=== PATIENT | male | born 1995 | race Two or more races ===

== ENCOUNTER 2017-09-03 18:50 | Emergency (ER) | payer OTHER ==
[~2017-09-03] VITALS: Ht 172.7 cm; Wt 59.0 kg
[~2017-09-03 18:50] MED LIST: PROMETHAZINE-C118 M1 ORAL; TAMIFLU75 MG ORAL
[2017-09-03 19:50] VITALS: BP 158/80
[2017-09-03] MEDS ORDERED: NORCO 5-325 TA1 EACH ORAL (20:07)
[2017-09-03] MEDS ORDERED: AMOXICILLIN500 MG ORAL (20:07)
[2017-09-03] MEDS ORDERED: Morphine Sulfate 4mg/ml Inj IM ONE (20:15)
[2017-09-03 20:17] VITALS: BP 158/80
--- NOTE | 2017-09-07 14:39 | Emergency Room Report ---
History of Present Illness General Chief Complaint: Head, Face, Neck Trauma Source: Patient Present Illness HPI 22-year-old male presents to ED with facial pain and swelling. States 2 days ago he had a temporary tooth placed by dentist. States that he's been having increased pain and lower facial swelling. Pain is a 10 out of 10, unrelieved with ibuprofen prescribed. Throbbing. Denies fevers or chills. Denies nausea or vomiting. No other aggravating relieving factors. Denies any other associated symptom Allergies: Coded Allergies: No Known Allergies (Unverified , 01/18/16) Patient History Past Medical History: none Past Surgical History: none Pertinent Family History: none Social History: Denies: smoking, alcohol use, drug use Immunizations: UTD Reviewed Nursing Documentation: PMH: Agreed, PSxH: Agreed Nursing Documentation-PMH Past Medical History: No Stated History Review of Systems All Other Systems: negative except mentioned in HPI Physical Exam Vital Signs Date Time Temp Pulse Resp B/P (MAP) Pulse Ox O2 Delivery O2 Flow Rate FiO2 09/03/17 19:36 98.8 57 18 158/80 98 Room Air Sp02 EP Interpretation: reviewed, normal General Appearance: no apparent distress, alert, GCS 15, non-toxic, mild distress Head: normocephalic, atraumatic Eyes: bilateral eye normal inspection, bilateral eye PERRL ENT: other - upper lip, facial swelling Neck: full range of motion, supple, no meningismus, supple/symm/no masses Respiratory: chest non-tender, lungs clear, normal breath sounds, speaking full sentences Cardiovascular #1: regular rate, rhythm, no edema Cardiovascular #2: 2+ carotid (R), 2+ carotid (L), 2+ radial (R), 2+ radial (L) , 2+ dorsalis pedis (R), 2+ dorsalis pedis (L) Gastrointestinal: normal bowel sounds, non tender, soft, non-distended, no guarding, no rebound Rectal: deferred Genitourinary: normal inspection, no CVA tenderness Musculoskeletal: back normal, gait/station normal, normal range of motion, non- tender Neurologic: alert, oriented x3, responsive, motor strength/tone normal, sensory intact, speech normal Psychiatric: judgement/insight normal, memory normal, mood/affect normal, no suicidal/homicidal ideation Reflexes: 3+ bicep (R), 3+ bicep (L), 3+ tricep (R), 3+ tricep (L), 3+ knee (R) , 3+ knee (L) Skin: normal color, no rash, warm/dry, well hydrated Lymphatic: no adenopathy Medical Decision Making Diagnostic Impression: Primary Impression: Dental infection ER Course 22-year-old male presents ED complaining of tooth pain, facial swelling Cracked tooth, dental abscess, cavity Patient placed on stretcher. After initial history, physical exam reveals a young male in mild distress. There is evidence of a upper tooth with surrounding lower facial swelling. No fluctuance or discharge. Possible infection. Given morphine in ED. Will prescribe antibiotics and pain medications. Patient does need to followup with dentist soon Diagnosis- dental infection Stable and discharged to home prescription for Questa and amoxicillin. Instructed to see dentist as a walk-in this week. Return to ED if symptoms recur or worse Last Vital Signs Date Time Temp Pulse Resp B/P (MAP) Pulse Ox O2 Delivery O2 Flow Rate FiO2 09/03/17 20:17 98.8 98 18 158/80 98 Room Air Status: improved Disposition: HOME, SELF-CARE Condition: Stable Scripts Hydrocodone Bit/Acetaminophen 5-325* (NORCO 5-325*) 1 Each Tablet 1 TAB ORAL Q6H Y for For Pain, #10 TAB 0 Refills Prov: JING BE M.D. 09/03/17 Amoxicillin* (AMOXIL*) 500 Mg Capsule 500 MG ORAL THREE TIMES A DAY, #21 CAP Prov: JING BE M.D. 09/03/17 Referrals: NOT CHOSEN IPA/,REFERRING (PCP) Patient Instructions: Dental Abscess, [id number] JING BE M.D. Sep 07, 2017 14:39
== END 2017-09-03 20:17 | disposition home or self-care (01) ==
LOC: EMR 19:35
DX: K04.7 Periapical abscess without sinus (principal)
CPT/HCPCS: 99284; J2270